=== PATIENT | male | born 1960 | race Asian ===

== ENCOUNTER 2023-05-06 07:49 | Day surgery (SDC) | payer OTHER ==
[~2023-05-06] VITALS: Ht 172.7 cm; Wt 69.9 kg
[2023-05-06] MEDS ORDERED: fentaNYL citrate 0.05 MG/ML VIAL ONE (08:41)
[2023-05-06] MEDS ORDERED: LIDOCAINE 2% 100 MG/5 ML UJET TP ONE (08:41)
[2023-05-06] MEDS ORDERED: MIDAZOLAM 2 MG/2 ML VIAL ONE (08:41)
[2023-05-06] MEDS ORDERED: fentaNYL citrate 0.05 MG/ML VIAL IVP ONE (10:05)
[2023-05-06] MEDS ORDERED: MIDAZOLAM 2 MG/2 ML VIAL IVP ONE (10:05)
== END 2023-05-06 10:20 | disposition home or self-care (01) ==
LOC: MOR 07:49 → MMU 07:51 → MOR 10:20
PROVIDERS: ATTEND Internal Medicine Gastroenterology
DX: R14.0 Abdominal distension (gaseous) (principal); K63.5 Polyp of colon; K21.9 Gastro-esophageal reflux disease without esophagitis; K22.70 Barrett's esophagus without dysplasia; K44.9 Diaphragmatic hernia without obstruction or gangrene; K57.30 Diverticulosis of large intestine without perforation or abscess without bleeding; I10 Essential (primary) hypertension; Z90.49 Acquired absence of other specified parts of digestive tract; Z79.899 Other long term (current) drug therapy
CPT/HCPCS: 43235; 45385; J2250; J3010